=== PATIENT | male | born 1985 | race Hispanic/Latino ===

== ENCOUNTER 2020-09-10 02:49 | Emergency (ER) | payer OTHER ==
[~2020-09-10] VITALS: Ht 154.9 cm; Wt 44.0 kg
[~2020-09-10 02:49] MED LIST: ASPIR 8181 MG PO; CELLCEPT500 MG PO; LORATADINE10 MG PO; PLAQUENIL200 MG PO; PREDNISONE1 MG PO; PRINIVIL20 MG PO
--- OUTSIDE RECORDS SUMMARY | 2020-09-10 02:59 | XMS REPORT | Continuity of Care Document ---
Author Author [facility] t Organization [facility] Address [address] [place] [address] Phone Unavailable Care Team Providers Care Construction Crew Member Name Role Phone Domitila BAKER, Jeovanny Maradiaga Attphys Abbie BAKER, Amie Ha Attphys Macey BAKER, Rohan Ellington Attphys Hiro BAKER, Jeevan Attphys Macey BAKER, Hafsa Ellington Attphys Payers Payer Name Policy Type Policy Number Effective Date Expiration Date S [facility] [place] - MEDICAID [facility] STAR [id number] 2016- PresentMedicaid Contracted [id number] 2016 00:00:00 [facility] Problems This patient has no known problems. Allergies, Adverse Reactions, Alerts This patient has no known allergies or adverse reactions. Social History Social Habit Start Date Stop Date Quantity Comments Source Sex Assigned At [facility] Medications This patient has no known medications. Procedures Procedure Date / Time Performed Performing Clinician Sour e XR DXA BONE DENSITY STUDY 2020-03-31 12:54:00 Rakel Choudhury [facility] Plan of Care Planned Activity Planned Date Details Comments Source Future Scheduled Test 2020-06-15 00:00:00 INFLUENZA VACCINE (#1) [code = INFLUENZA VACCINE (#1)] [facility] r Encounters Start Date/Time End Date/Time Encounter Type Admission Type Attendi [facility] Care Department Encounter ID Source 2020-07-07 11:27:49 2020-07-07 14:37:38 Office Visit Hiren Frank [facility] [id number] 2020-06-10 16:01:13 2020-06-10 16:29:57 Office Visit Leland Downing [facility] [id number] 2020-03-31 10:27:43 2020-03-31 10:57:43 Office Visit Jeevan Padilla [facility] [id number] 2019-12-17 13:22:48 2019-12-17 14:41:33 Office Visit Leland Downing [facility] [id number] 2019-12-17 10:38:51 2019-12-17 11:25:04 Office Visit Rakel Cain [facility] [id number] 2019-12-03 10:40:04 2019-12-03 11:10:04 Office Visit Hiren Frank [facility] [id number] 2019-07-30 10:47:51 2019-07-30 11:17:51 Office Visit Hiren Frank [facility] [id number] 2019-06-11 14:30:40 2019-06-11 15:35:26 Office Visit Leland Downing [facility] [id number] 2019-06-03 10:56:44 2019-06-03 11:38:35 Office Visit Jeevan Padilla [facility] [id number] Results Test Description Test Time Test Comments Results Result Comments Source RAD, BONE DENSITY STUDY 2020-04-01 13:57:00 Reason for Exam: ->Drug-induced osteoporosis FINAL REPORT Exam : Bone mineral density study 03/31/2020 12:54 PM Indication: Drug-induced osteoporosis . The patient history questionnaire was completed and is available on PACS. Comparison: None Findings: Evaluation of the left hip and lumbar spine was performed utilizing DEXA Hologic bone densitometer. The study is technically adequate.The patient's fracture risk is compared to an age-matched control. Left femoral neck bone mineral density: 0.603 g/cm2, Z-score is -2.1. Left hip total bone mineral density: 0.680 g/cm2, Z-score is -2.2. Lumbar spine total bone mineral density: 0.852 gm/cm2, Z-score is -2.2. IMPRESSION:Patient's bone mineral density has a Z score of -2.0 or lower, which is defined as below the expected range for age. (Ref. 2013 - International Society for Clinical Densitometry. BMD Reporting in Females Prior to Menopause and in Males Younger Than Age 50) Signed: Vijaya Shrestha Verified Date/Time: 04/01/2020 13:57:33 Reading Location: [facility] Reading Room [address] [place] [address] DXA Bone Density Study 2020-04-01 13:57:[address] [facility] - 04/01/2020 1:59 PM CDTFINAL REPORT Exam: Bone mineral density study 03/31/2020 12:54 PM Indication: Drug-induced osteoporosis . The patient history questionnaire was completed and is available on PACS. Comparison: None Findings: Evaluation of the left hip and lumbar spine was performed utilizing DEXA Hologic bone densitometer. The study is technically adequate.The patient's fracture risk is compared to an age-matched control. Left femoral neck bone mineral density: 0.603 g/cm2, Z-score is -2.1. Left hip total bone mineral density: 0.680 g/cm2, Z-score is -2.2. Lumbar spine total bone mineral density: 0.852 gm/cm2, Z-score is -2.2. IMPRESSION:Patient's bone mineral density has a Z score of -2.0 or lower, which is defined as below the expected range for age. (Ref. 2013 - International Society for Clinical Densitometry. BMD Reporting in Females Prior to Menopause and in Males Younger Than Age 50) Signed: Vijaya Shrestha MDReport Verified Date/Time: 04/01/2020 13:57:33 Reading Location: [facility] Reading Room [address] [place] [address] [facility]
--- OUTSIDE RECORDS SUMMARY | 2020-09-10 02:59 | XMS REPORT | Clinical Summary ---
Author Author [facility] Address Unknown Phone Unavailable Care Team Providers Care Person Investigator Name Role Phone PCP Unavailable Allergies Not on File Medications Not on file Active Problems Not on file Encounters Care Team Description Date Type Specialty Rakel Choudhury MD Drug-induced osteoporosis 03/31/2020 Hospital Radiology Encounter Rakel Choudhury MD Drug-induced osteoporosis (Primary Dx) 12/18/2019 Outside Orders Central Scheduling after 09/10/2019 Social History Date Tobacco Use Types Packs/Day Years Used Never Assessed Sex Assigned at Date Recorded Not on file Last Filed Vital Signs Not on file Plan of Treatment Health Maintenance Due Date Last Done Comments INFLUENZA VACCINE (#1) 2020 07/23/2015, 08/20/2008, 08/20/2008 Procedures Comments Procedure Name Priority Date/Time Associated Diag nosis XR DXA BONE DENSITY STUDY Routine 03/31/2020 Drug -induced osteoporosis 12:54 PM CDT after 09/10/2019 Results * XR DXA Bone Density Study (03/31/2020 12:54 PM CDT) Specimen Narrative Performed At FINAL REPORT [facility] Exam: Bone mineral density study 020 12:54 PM Indication: Drug-induced osteopor osis . The patient history questionnaire was completed and is avai lable on PACS. Comparison: None Findings: Evaluation of the left hip and saeed mbar spine was performed utilizing DEXA Hologic bone densitomete r. The study is technically adequate. The patient's fracture risk is compared to an age-matched control. Left femoral neck bone mineral density: 0.603 g/cm2, Z-score is -2.1. Left hip total bone mineral density: 0.680 g/cm2, Z-score is -2.2. Lumbar spine total bone mineral density : 0.852 gm/cm2, Z-score is -2.2. IMPRESSION: Patient's bone mineral density has a Z score of -2.0 or lower, which is defined as below the expected range for age. (Ref. 2013 - International Society for Clinical Densitometry. BMD Reporting in Females Prior to Menopause and in Males Younger Than Age 50) Signed: Sandee Shrestha MD Report Verified Date/Time: 04/01/2020 13:57:33 Reading Location: [place] [facility] Reading Ro om 3 [facility] Procedure Note Interface, External Ris In - 04/01/2020 1:59 PM CDT FINAL REPORT Exam: Bone mineral density study 03/31/2020 12:54 PM Indication: Drug-induced osteoporosis . The patient history questionnaire was completed and is available on PACS. Comparison: None Findings: Evaluation of the left hip and lumbar spine was performed utilizing DEXA Hologic bone densitometer. The study is technically adequate. The patient's fracture risk is compared to an age-matched control. Left femoral neck bone mineral density: 0.603 g/cm2, Z-score is -2.1. Left hip total bone mineral density: 0.680 g/cm2, Z-score is -2.2. Lumbar spine total bone mineral density: 0.852 gm/cm2, Z-score is -2.2. IMPRESSION: Patient's bone mineral density has a Z score of -2.0 or lower, which is defined as below the expected range for age. (Ref. 2013 - International Society for C linical Densitometry. BMD Reporting in Females Prior to Menopause and in Males Younger Than Age 50) Signed: Sandee Shrestha MD Report Verified Date/Time: 04/01/2020 13:57:33 Reading Location: [place] Reading Room [address] [address] Performing Organization Address City/State/Zipcode Ph one Number GE RIS after 09/10/2019 Insurance Type Payer Benefit Subscriber ID Effective Phone Address Plan / Dates Group Medicaid Contracted MEDICAID - MEDICAID [facility] [id number] [id number] CARE COMM STAR resent PLAN
[2020-09-10] MEDS ORDERED: DEXAMETHASONE SOD PHOS 10 MG/1 ML VIAL IV ONE (03:15)
[2020-09-10] MEDS ORDERED: CEFTRIAXONE SOD 1 GM/NS 50 ML 50 ML IV ONE (03:15)
[2020-09-10] MEDS ORDERED: AZITHROMYCIN 500MG/NS 250 ML 250 ML IV ONE (03:15)
[2020-09-10] MEDS ORDERED: BENZONATATE 100 MG CAP PO ONE (03:30)
[2020-09-10] MEDS ORDERED: ACETAMINOPHEN 325 MG TAB PO ONE (03:30)
[2020-09-10 03:45] LABS: BASOPHILS % 0.1 % (0.0-1.0); EOSINOPHILS % 0.1 % (0.0-6.0); HEMOGLOBIN 13.2 g/dL (14.0-18.0); LYMPHOCYTES # (AUTO) 0.8 (1.0-3.2); MEAN CORPUSCULAR HEMOGLOBIN 27.4 pg (28-32); MEAN CORPUSCULAR HGB CONC 32.2 g/dL (31-35); MEAN CORPUSCULAR VOLUME 85.2 fL (81-99); MONOCYTES # (AUTO) 0.5 (0.2-0.8); MONOCYTES % 6.6 % (4.4-11.3); NEUTROPHILS # (AUTO) 5.9 (2.1-6.9); NEUTROPHILS % 82.1 % (38.7-80.0); PLATELET COUNT 179 x10e3/uL (140-360); RED BLOOD COUNT 4.81 x10e6/uL (4.3-5.7); RED CELL DISTRIBUTION WIDTH 12.4 % (11.7-14.4)
--- NOTE | 2020-09-10 03:49 | NUR ---
CUSTODIAL SERVICES MANAGER AT BEDSIDE FOR CHEST XRAY.
--- NOTE | 2020-09-10 03:51 | Emergency Department Note ---
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 Historian: Patient, Family Member Arrival Mode: Car Onset (how long ago): day(s) (8) Location: chest Quality: cough, sob Radiation: Reports non-radiation Severity: moderate Onset quality: gradual Duration (how long): day(s) (8) Progression: worsening Chronicity: new Context: Reports recent illness (positive for covid 19 2 days ago) Relieving factors: none Exacerbating factors: none Associated symptoms: Reports cough, Reports fever/chills, Reports shortness of breath Treatments prior to arrival: other (zpak) Past Medical/Family History Physician Review I have reviewed the patient's past medical and family history. Any updates have been documented here. Past Medical History Recent Fever: Yes Clinical Suspicion of Infectio: Yes New/Unexplained Change in Ment: No Other Medical History: LUPUS MENTAL RETARDATION Other Surgery: EXPLORATORY LAP Social History Smoking Cessation: Never Smoker Alcohol Use: None Physically hurt or threatened: No Family History Family history of heart diseas: No Other Last Tetanus: unk Review of Systems Review of Systems Constitutional: Reports no symptoms EENTM: Reports no symptoms Cardiovascular: Reports no symptoms Respiratory: Reports as per HPI Gastrointestinal: Reports no symptoms Genitourinary: Reports no symptoms Musculoskeletal: Reports no symptoms Integumentary: Reports no symptoms Neurological: Reports no symptoms Psychological: Reports no symptoms Endocrine: Reports no symptoms Hematological/Lymphatic: Reports no symptoms Physical Exam Related Data Allergies: Coded Allergies: No Known Allergies (Unverified , 06/28/14) Triage Vital Signs Vital Signs Date Time Temp Pulse Resp B/P (MAP) Pulse Ox O2 Delivery O2 Flow Rate FiO2 09/10/20 02:49 101.6 115 24 130/74 92 Room Air Vital signs reviewed: Yes Physical Exam CONSTITUTIONAL Constitutional: Present well-developed, Present well-nourished HENT HENT: Present normocephalic, Present atraumatic, Present oropharynx clear/moist, Present nose normal HENT L/R: Present left ext ear normal, Present right ext ear normal EYES Eyes: Reports PERRL, Reports conjunctivae normal NECK Neck: Present ROM normal PULMONARY Pulmonary: Present effort normal, Present rhonchi (throughout), Present other (decresed bs lower lobes bilateral) CARDIOVASCULAR Cardiovascular: Present regular rhythm, Present heart sounds normal, Present capillary refill normal, Present tachycardia GASTROINTESTINAL Abdominal: Present soft, Present nontender, Present bowel sounds normal GENITOURINARY Genitourinary: Present exam deferred SKIN Skin: Present warm, Present dry MUSCULOSKELETAL Musculoskeletal: Present ROM normal NEUROLOGICAL Neurological: Present alert, Present oriented x 3, Present no gross motor or sensory deficits PSYCHOLOGICAL Psychological: Present mood/affect normal, Present judgement normal Results Laboratory Result Diagram: 09/10/20 0315 Laboratory Laboratory Tests Test 09/10/20 03:15 White Blood Count 7.24 x10e3/uL (4.8-10.8) Red Blood Count 4.81 x10e6/uL (4.3-5.7) Hemoglobin 13.2 g/dL (14.0-18.0) Hematocrit 41.0 % (38.2-49.6) Mean Corpuscular Volume 85.2 fL (81-99) Mean Corpuscular Hemoglobin 27.4 pg (28-32) Mean Corpuscular Hemoglobin Concent 32.2 g/dL (31-35) Red Cell Distribution Width 12.4 % (11.7-14.4) Platelet Count 179 x10e3/uL (140-360) Neutrophils (%) (Auto) 82.1 % (38.7-80.0) Lymphocytes (%) (Auto) 11.0 % (18.0-39.1) Monocytes (%) (Auto) 6.6 % (4.4-11.3) Eosinophils (%) (Auto) 0.1 % (0.0-6.0) Basophils (%) (Auto) 0.1 % (0.0-1.0) Neutrophils # (Auto) 5.9 (2.1-6.9) Lymphocytes # (Auto) 0.8 (1.0-3.2) Monocytes # (Auto) 0.5 (0.2-0.8) Eosinophils # (Auto) 0.0 (0.0-0.4) Basophils # (Auto) 0.0 (0.0-0.1) Absolute Immature Granulocyte (auto 0.01 x10e3/uL (0-0.1) Sodium Level 140 mmol/L (136-145) Potassium Level 4.1 mmol/L (3.5-5.1) Chloride Level 104 mmol/L (98-107) Carbon Dioxide Level 24 mmol/L (22-29) Anion Gap 16.1 mmol/L (8-16) Blood Urea Nitrogen 14 mg/dL (7-26) Creatinine 1.21 mg/dL (0.72-1.25) Estimat Glomerular Filtration Rate > 60 ML/MIN (60-) BUN/Creatinine Ratio 12 (6-25) Glucose Level 89 mg/dL (74-118) Calcium Level 7.9 mg/dL (8.4-10.2) Laboratory Tests Test 09/10/20 03:15 White Blood Count 7.24 x10e3/uL (4.8-10.8) Red Blood Count 4.81 x10e6/uL (4.3-5.7) Hemoglobin 13.2 g/dL (14.0-18.0) Hematocrit 41.0 % (38.2-49.6) Mean Corpuscular Volume 85.2 fL (81-99) Mean Corpuscular Hemoglobin 27.4 pg (28-32) Mean Corpuscular Hemoglobin Concent 32.2 g/dL (31-35) Red Cell Distribution Width 12.4 % (11.7-14.4) Platelet Count 179 x10e3/uL (140-360) Neutrophils (%) (Auto) 82.1 % (38.7-80.0) Lymphocytes (%) (Auto) 11.0 % (18.0-39.1) Monocytes (%) (Auto) 6.6 % (4.4-11.3) Eosinophils (%) (Auto) 0.1 % (0.0-6.0) Basophils (%) (Auto) 0.1 % (0.0-1.0) Neutrophils # (Auto) 5.9 (2.1-6.9) Lymphocytes # (Auto) 0.8 (1.0-3.2) Monocytes # (Auto) 0.5 (0.2-0.8) Eosinophils # (Auto) 0.0 (0.0-0.4) Basophils # (Auto) 0.0 (0.0-0.1) Absolute Immature Granulocyte (auto 0.01 x10e3/uL (0-0.1) Lab results reviewed: Yes Imaging Imaging results reviewed: Yes Impressions Procedure: [id number] DX/CHEST SINGLE (PORTABLE) Exam Date: 09/10/20 Exam Time: 339 REPORT STATUS: Signed EXAMINATION: CHEST SINGLE (PORTABLE) INDICATION: ^Y ^SOB, POSITIVE COVID ^[id number] ^0340 ^Y COMPARISON: None available. FINDINGS: AP view TUBES and LINES: None. LUNGS: Lungs are well inflated. Bilateral airspace opacities, left greater than right. PLEURA: No pleural effusion or pneumothorax. HEART AND MEDIASTINUM: The cardiomediastinal silhouette is unremarkable. BONES AND SOFT TISSUES: No acute osseous lesion. Soft tissues are unremarkable. UPPER ABDOMEN: No free air under the diaphragm. IMPRESSION: Bilateral airspace opacities, left greater than right, representing multifocal pneumonia. Signed by: Dr. Gage Clancy MD on 09/10/2020 4:21 AM Dictated By: GAGE CLANCY MD 0 Transcribed By: AUNDREA on 09/10/20420 COPY TO: SARAY ADKINS MD~ Assessment & Plan Medical Decision Making MDM pt with covid 19 with increased cough and sob cbc, bmp, blood cultures, cxr ordered to eval for pneumonia, electrolyte abnormality rocephin 1 gram iv ordered zithromax 500 mg iv ordered dexamethasone 6 mg iv ordered tylenol 975 mg po ordered I SPOKE WITH DR MCCULLOUGH AT [facility] AND SHE ACCEPTS PT FOR TRANSFER Assessment & Plan Final Impression: (1) Pneumonia due to COVID-19 virus (2) Hypoxia Depart Disposition: TRANS TO OTHER [facility] F[facility] Last Vital Signs Date Time Temp Pulse Resp B/P (MAP) Pulse Ox O2 Delivery O2 Flow Rate FiO2 09/10/20 02:49 101.6 115 24 130/74 92 Room Air Home Meds Reported Medications Aspirin (ASPIR 81) 81 Mg Tablet.dr, 81 MG PO DAILY 06/17/15 Loratadine (LORATADINE) 10 Mg Tablet, 10 MG PO DAILY, #30 TAB 06/17/15 Hydroxychloroquine Sulfate (PLAQUENIL) 200 Mg Tab, 200 MG PO DAILY 06/28/14 Lisinopril (PRINIVIL) 20 Mg Tablet, 20 MG PO DAILY 06/28/14 Prednisone (PREDNISONE) 1 Mg Tablet, 1 MG PO TID 06/28/14 Mycophenolate Mofetil (CELLCEPT) 500 Mg Tablet, 500 MG PO DAILY 06/28/14 Medications in the ED Azithromycin 250 ml @ 200 mls/hr NOW ONCE IV ; Start 09/10/20 at 03:15; Stop 09/10/20 at 04:29 Ceftriaxone Sodium 50 ml @ 100 mls/hr ONCE ONCE IV ; Start 09/10/20 at 03:15; Stop 09/10/20 at 03:44; Status DC Dexamethasone Sodium Phosphate 6 mg ONCE ONCE IV ; Start 09/10/20 at 03:15; Stop 09/10/20 at 03:16; Status DC Acetaminophen 975 mg ONCE ONCE PO ; Start 09/10/20 at 03:30; Stop 09/10/20 at 03:31; Status DC Benzonatate 100 mg ONCE ONCE PO ; Start 09/10/20 at 03:30; Stop 09/10/20 at 03:31; Status DC SARAY ADKINS MD Sep 10, 2020 03:51
[2020-09-10 03:58] LABS: ANION GAP 16.1 mmol/L (8-16); BLOOD UREA NITROGEN 14 mg/dL (7-26); BUN/CREATININE RATIO 12 (6-25); CALCIUM 7.9 mg/dL (8.4-10.2); CARBON DIOXIDE 24 mmol/L (22-29); CHLORIDE 104 mmol/L (98-107); CREATININE, SERUM 1.21 mg/dL (0.72-1.25); EST GLOMERULAR FILTRATION RATE > 60 ML/MIN (60-); GLUCOSE 89 mg/dL (74-118); POTASSIUM 4.1 mmol/L (3.5-5.1); SODIUM 140 mmol/L (136-145)
--- NOTE | 2020-09-10 04:24 | Diagnostic Imaging Report ---
EXAMINATION: CHEST SINGLE (PORTABLE) INDICATION: ^Y ^SOB, POSITIVE COVID ^[id number] ^0340 ^Y COMPARISON: None available. FINDINGS: AP view TUBES and LINES: None. LUNGS: Lungs are well inflated. Bilateral airspace opacities, left greater than right. PLEURA: No pleural effusion or pneumothorax. HEART AND MEDIASTINUM: The cardiomediastinal silhouette is unremarkable. BONES AND SOFT TISSUES: No acute osseous lesion. Soft tissues are unremarkable. UPPER ABDOMEN: No free air under the diaphragm. IMPRESSION: Bilateral airspace opacities, left greater than right, representing multifocal pneumonia. Signed by: Dr. Gage Clancy MD on 09/10/2020 4:21 AM
== END 2020-09-10 07:51 | disposition short-term general hospital (02) ==
LOC: ER 02:57
DX: U07.1 COVID-19 (principal); J12.89 Other viral pneumonia; R09.02 Hypoxemia
CPT/HCPCS: 36415; 71045; 80048; 85025; 87040; 99284; J0456; J0696; J1100

== ENCOUNTER 2020-09-13 14:54 | Emergency (ER) | payer OTHER ==
[~2020-09-13] VITALS: Ht 154.9 cm; Wt 44.0 kg
[2020-09-13] MEDS ORDERED: SODIUM CHLORIDE 0.9% 1000ML 1,000 ML IV STA (15:10)
[2020-09-13] MEDS ORDERED: HYDROCODONE/CHLORPHENIRAMINE 5 ML LIQCR PO STA (15:24)
[2020-09-13] MEDS ORDERED: PANTOPRAZOLE 40 MG 10ML VIAL IV ONE (15:30)
[2020-09-13 15:37] LABS: BASOPHILS % 0.1 % (0.0-1.0); HEMATOCRIT 40.5 % (38.2-49.6); HEMOGLOBIN 13.1 g/dL (14.0-18.0); LYMPHOCYTES # (AUTO) 0.4 (1.0-3.2); LYMPHOCYTES % 2.9 % (18.0-39.1); MEAN CORPUSCULAR HEMOGLOBIN 27.3 pg (28-32); MEAN CORPUSCULAR HGB CONC 32.3 g/dL (31-35); MEAN CORPUSCULAR VOLUME 84.6 fL (81-99); MONOCYTES # (AUTO) 0.5 (0.2-0.8); MONOCYTES % 4.2 % (4.4-11.3); NEUTROPHILS # (AUTO) 11.1 (2.1-6.9); NEUTROPHILS % 92.4 % (38.7-80.0); PLATELET COUNT 260 x10e3/uL (140-360); RED BLOOD COUNT 4.79 x10e6/uL (4.3-5.7); RED CELL DISTRIBUTION WIDTH 12.4 % (11.7-14.4)
[2020-09-13] MEDS ORDERED: HYDROCODONE/CHLORPHENIRAMINE 5 ML LIQCR ONE (15:40)
[2020-09-13 15:52] LABS: INR 0.91; PARTIAL THROMBOPLASTIN TIME 28.1 seconds (23.8-35.5); PROTHROMBIN TIME 12.7 seconds (11.9-14.5)
[2020-09-13 15:58] LABS: ALANINE AMINOTRANSFERASE 99 IU/L (0-55); ALBUMIN 3.1 g/dL (3.5-5.0); ALBUMIN/GLOBULIN RATIO 0.9 (0.8-2.0); ALKALINE PHOSPHATASE 78 IU/L (40-150); ANION GAP 13.7 mmol/L (8-16); BLOOD UREA NITROGEN 10 mg/dL (7-26); BUN/CREATININE RATIO 10 (6-25); CALCIUM 8.2 mg/dL (8.4-10.2); CARBON DIOXIDE 23 mmol/L (22-29); CHLORIDE 107 mmol/L (98-107); CREATINE KINASE 132 IU/L (30-200); EST GLOMERULAR FILTRATION RATE > 60 ML/MIN (60-); GLUCOSE 97 mg/dL (74-118); LIPASE 54 U/L (8-78); MAGNESIUM 1.7 MG/DL (1.3-2.1); POTASSIUM 3.7 mmol/L (3.5-5.1); SODIUM 140 mmol/L (136-145)
[2020-09-13] MEDS ORDERED: PROMETHAZINE/CODEINE 5 ML UDC PO STA (17:41)
[2020-09-13] MEDS ORDERED: GUAIFENESIN/CODEINE 10 ML CUP PO ONE (18:30)
[2020-09-13] MEDS ORDERED: SODIUM CHLORIDE 0.9% 50ML 50 ML ONE (18:50)
[2020-09-13] MEDS ORDERED: IOPAMIDOL 370 MG/ML 200 ML INFUS..BTL INJ ONE (18:50)
[2020-09-13 20:37] VITALS: BP 115/84
== END 2020-09-13 20:40 | disposition home or self-care (01) ==
LOC: ER 15:01
DX: U07.1 COVID-19 (principal); J18.9 Pneumonia, unspecified organism; R05 Cough; F79 Unspecified intellectual disabilities; M32.9 Systemic lupus erythematosus, unspecified
CPT/HCPCS: 36415; 71045; 74177; 80053; 82550; 82553; 83690; 83735; 83880; 84484; 85025; 85610; 85730; 87040; 99284; C9113; J7030; Q9967

== ENCOUNTER 2020-09-18 15:05 | Emergency (ER) | payer OTHER ==
[~2020-09-18] VITALS: Ht 154.9 cm; Wt 44.0 kg
== END 2020-09-18 17:16 | disposition home or self-care (01) ==
LOC: ER 15:19
DX: U07.1 COVID-19 (principal); R05 Cough; M32.9 Systemic lupus erythematosus, unspecified; F79 Unspecified intellectual disabilities
CPT/HCPCS: 99283

== ENCOUNTER 2020-09-20 20:47 | Emergency (ER) | payer OTHER ==
[~2020-09-20] VITALS: Ht 154.9 cm; Wt 44.0 kg
[2020-09-20] MEDS: GUAIFENESIN/CODEINE 10 ML CUP PO PRN (21:45)
[2020-09-20] MEDS ORDERED: ONDANSETRON HCL 4 MG ORAL DISINTEGRATING TAB PO ONE (21:45)
[2020-09-20 23:53] LABS: BILIRUBIN,URINE NEGATIVE (NEGATIVE); CLARITY,URINE SL CLOUDY (CLEAR); COLOR,URINE YELLOW (YELLOW); KETONES,URINE 1+ (NEGATIVE); LEUKOCYTE ESTERASE ,URINE NEGATIVE (NEGATIVE); NITRITE,URINE NEGATIVE (NEGATIVE); PROTEIN,URINE DIPSTICK 2+ (NEGATIVE); URINE UROBILINOGEN 0.2 mg/dL (0.2 - 1)
[2020-09-21 00:01] LABS: AMORPHOUS SEDIMENT,URINE FEW (FEW); BACTERIA,URINE RARE /HPF; EPITHELIAL CELLS,URINE FEW /LPF; MUCUS,URINE FEW (RARE); RBC,URINE 0-5 /HPF (0-5); WBC,URINE (MAN) 0-5 /HPF (0-5)
[2020-09-21 00:24] LABS: BASOPHILS % 0.2 % (0.0-1.0); EOSINOPHILS # (AUTO) 0.2 (0.0-0.4); EOSINOPHILS % 2.4 % (0.0-6.0); HEMATOCRIT 42.3 % (38.2-49.6); HEMOGLOBIN 13.3 g/dL (14.0-18.0); LYMPHOCYTES # (AUTO) 1.2 (1.0-3.2); LYMPHOCYTES % 11.6 % (18.0-39.1); MEAN CORPUSCULAR HEMOGLOBIN 26.9 pg (28-32); MEAN CORPUSCULAR HGB CONC 31.4 g/dL (31-35); MEAN CORPUSCULAR VOLUME 85.5 fL (81-99); MONOCYTES % 10.4 % (4.4-11.3); NEUTROPHILS # (AUTO) 7.5 (2.1-6.9); PLATELET COUNT 385 x10e3/uL (140-360); RED BLOOD COUNT 4.95 x10e6/uL (4.3-5.7); RED CELL DISTRIBUTION WIDTH 12.3 % (11.7-14.4)
[2020-09-21 00:40] LABS: ALANINE AMINOTRANSFERASE 29 IU/L (0-55); ALBUMIN 2.8 g/dL (3.5-5.0); ALBUMIN/GLOBULIN RATIO 0.8 (0.8-2.0); ALKALINE PHOSPHATASE 87 IU/L (40-150); ANION GAP 13.5 mmol/L (8-16); BLOOD UREA NITROGEN 11 mg/dL (7-26); BUN/CREATININE RATIO 11 (6-25); CALCIUM 8.4 mg/dL (8.4-10.2); CARBON DIOXIDE 29 mmol/L (22-29); CHLORIDE 101 mmol/L (98-107); CREATININE, SERUM 1.02 mg/dL (0.72-1.25); EST GLOMERULAR FILTRATION RATE > 60 ML/MIN (60-); GLUCOSE 103 mg/dL (74-118); POTASSIUM 3.5 mmol/L (3.5-5.1); SODIUM 140 mmol/L (136-145)
[2020-09-21] MEDS ORDERED: SODIUM CHLORIDE 0.9% 1000ML 1,000 ML IV ONE (00:45)
[2020-09-21] MEDS: GUAIFENESIN/CODEINE 10 ML CUP PO PRN (03:52)
[2020-09-21 04:17] VITALS: BP 109/84
== END 2020-09-21 04:21 | disposition other institution (70) ==
LOC: ER 20:57
DX: U07.1 COVID-19 (principal); M32.9 Systemic lupus erythematosus, unspecified; F79 Unspecified intellectual disabilities
CPT/HCPCS: 36415; 71045; 80053; 81001; 85025; 99284; J7030; Q0162; U0002